=== PATIENT | male | born 1975 | race Caucasian/White ===

== ENCOUNTER 2017-04-27 06:20 | Day surgery (SDC) | payer BC ==
[~2017-04-27] VITALS: Ht 190.5 cm; Wt 117.3 kg
[~2017-04-27 06:20] MED LIST: VARE1TAB21 PO
[2017-04-27] MEDS ORDERED: CIPROFLOXACIN/PMX 400MG/200ML 200 ML IVPB ONE (07:00)
[2017-04-27 07:18] VITALS: BP 132/94
[2017-04-27] MEDS ORDERED: NALOXONE 1 MG/ML, 2ML ONE (08:03)
[2017-04-27] MEDS ORDERED: MIDAZOLAM 1 MG/ML, 5ML ONE ×2 (08:03)
[2017-04-27] MEDS ORDERED: FENTANYL PF 100 MCG/2ML ONE ×3 (08:03→09:40)
[2017-04-27] MEDS ORDERED: FLUMAZENIL 0.1 MG/1 ML, 5ML ONE (08:04)
[2017-04-27] MEDS ORDERED: LIDOCAINE 2%, 20ML ONE (08:12)
[2017-04-27] MEDS ORDERED: PROMETHAZINE 25 MG/ML, 1ML ONE (08:33)
[2017-04-27] MEDS ORDERED: MEPERIDINE/PF 50 MG/ML ONE (08:33)
[2017-04-27] MEDS ORDERED: VISIPAQUE 270 MG/ML, 50ML BOTTLE ONE (09:32)
[2017-04-27] MEDS ORDERED: PHENAZOPYRIDINE 200 MG TABLET ONE (10:53)
[2017-04-27] MEDS ORDERED: PHENAZOPYRIDINE 200 MG TABLET PO ONE (10:55)
== END 2017-04-27 11:15 ==
LOC: OUT 06:20
PROVIDERS: ATTEND Urology
DX: N20.0 Calculus of kidney (principal); Z79.82 Long term (current) use of aspirin; Z98.890 Other specified postprocedural states; Z98.52 Vasectomy status
CPT/HCPCS: 50433; 76937; 99156; 99157; C1751; C1769; C1894; C2625; J0744; J2175; J2250; J2550; J3010; J3490; Q9966; J2310

== ENCOUNTER 2017-04-30 12:47 | Inpatient (IN) | payer BC ==
[~2017-04-30] VITALS: Ht 190.5 cm; Wt 116.7 kg
[2017-04-30] MEDS ORDERED: LACTATED RINGERS 1,000 ML IV SCH (13:53)
[2017-04-30 13:54] VITALS: BP 145/85
[2017-04-30] MEDS ORDERED: PANT20TA3 PO (13:54)
[2017-04-30] MEDS ORDERED: FENTANYL PF 100 MCG/2ML ONE ×4 (15:38→20:06)
[2017-04-30] MEDS ORDERED: MIDAZOLAM 1 MG/ML, 2ML ONE (15:38)
[2017-04-30] MEDS ORDERED: ROCURONIUM 10 MG/ML ONE (16:06)
[2017-04-30] MEDS ORDERED: PROPOFOL 10 MG/ML, 20ML ONE (16:06)
[2017-04-30] MEDS ORDERED: CEFAZOLIN 1,000 MG ONE ×3 (16:07)
[2017-04-30] MEDS ORDERED: KETAMINE 10 MG/ML, 20ML ONE (16:23)
[2017-04-30] MEDS ORDERED: DEXAMETHASONE 4 MG/ML, 1ML ONE ×2 (16:30)
[2017-04-30] MEDS ORDERED: GENTAMICIN 80 MG/2 ML ONE ×2 (16:31)
[2017-04-30] MEDS ORDERED: HYDROmorphone 2 MG/ML, 1ML ONE (17:19)
[2017-04-30] MEDS ORDERED: OMNIPAQUE 350 MG/ML, 50 ML BOTTLE IV ONE (17:41)
[2017-04-30] MEDS ORDERED: ONDANSETRON 2MG/ML, 2ML ONE ×3 (18:57→22:10)
[2017-04-30] MEDS ORDERED: KETOROLAC 30 MG/1 ML ONE (18:57)
[2017-04-30] MEDS ORDERED: OXYcodone 5 MG/5 ML ORAL.SOL UDC PO PRN (19:00)
[2017-04-30] MEDS ORDERED: ACETAMINOPHEN 325 MG TABLET PO PRN (19:00)
[2017-04-30] MEDS ORDERED: LABETALOL 5MG/ML, 20ML IV PRN (19:00)
[2017-04-30] MEDS ORDERED: LORazepam 2 MG/ML, 1ML IVPush PRN (19:00)
[2017-04-30] MEDS ORDERED: ONDANSETRON 2MG/ML, 2ML IVPush PRN (19:00)
[2017-04-30] MEDS ORDERED: MEPERIDINE/PF 25MG/0.5ML IVPush PRN (19:00)
[2017-04-30] MEDS ORDERED: PROMETHAZINE 25 MG/ML, 1ML IV PRN (19:00)
[2017-04-30] MEDS ORDERED: hydrALAzine 20 MG/ML, 1ML IV PRN (19:00)
[2017-04-30] MEDS ORDERED: OMNIPAQUE 350 MG/ML, 50 ML BOTTLE ONE (20:00)
[2017-04-30] MEDS ORDERED: HYDROmorphone 1 MG/ML, 1ML ONE (20:02)
[2017-04-30] MEDS ORDERED: OXYcodone 5 MG/5 ML ORAL.SOL UDC ONE (20:02)
[2017-04-30] MEDS ORDERED: OPIUM/BELLADONNA SUPP.RECT 16.2-60 MG ONE (20:06)
[2017-04-30] MEDS: FENTANYL PF 100 MCG/2ML IV PRN ×2 (20:07→20:15)
[2017-04-30] MEDS: HYDROmorphone 1 MG/ML, 1ML IV PRN ×2 (20:10→21:22)
[2017-04-30 20:15] LABS: HEMATOCRIT 49.4 % (39.2-51.8); HEMOGLOBIN 16.5 g/dL (13.7-18.0)
[2017-04-30 20:26] LABS: BLOOD UREA NITROGEN 20 mg/dL (7-18)
[2017-04-30 20:27] LABS: ASPARTATE AMINO TRANSFERASE 17 U/L (15-37)
[2017-04-30] MEDS ORDERED: OPIUM/BELLADONNA SUPP.RECT 16.2-60 MG PR ONE (20:30)
[2017-04-30] MEDS: morphine SULFATE 10 MG/ML, 1ML IV PRN ×2 (22:23→23:22)
[2017-04-30] MEDS: LACTATED RINGERS 1,000 ML IV SCH (22:30)
[2017-04-30] MEDS ORDERED: ONDANSETRON 2MG/ML, 2ML IV PRN (22:30)
[2017-04-30] MEDS ORDERED: OPIUM/BELLADONNA SUPP.RECT 16.2-60 MG PR PRN (22:30)
[2017-04-30 23:51] VITALS: BP 121/88
[2017-05-01] MEDS: CEFAZOLIN PMX 1GM/50ML 50 ML IVPB SCH ×2 (00:48→08:59)
[2017-05-01 03:54] VITALS: BP 103/63
[2017-05-01 04:56] LABS: HEMATOCRIT 42.8 % (39.2-51.8); HEMOGLOBIN 14.4 g/dL (13.7-18.0); WHITE BLOOD COUNT 10.8 x10^3/uL (3.4-10)
[2017-05-01 05:03] LABS: BLOOD UREA NITROGEN 19 mg/dL (7-18)
[2017-05-01] MEDS: LACTATED RINGERS 1,000 ML IV SCH ×2 (06:30→14:54)
[2017-05-01] MEDS: OXYcodone/APAP 5/325MG TABLET PO PRN ×3 (07:19→16:04)
[2017-05-01 07:28] VITALS: BP 110/61
[2017-05-01] MEDS ORDERED: PANTOPRAZOLE 20MG TABLET PO SCH (07:30)
[2017-05-01] MEDS: VARENICLINE 1MG TABLET PO SCH ×2 (08:59→09:01)
[2017-05-01] MEDS: morphine SULFATE 10 MG/ML, 1ML IV PRN (09:05)
[2017-05-01 15:17] VITALS: BP 131/86
[2017-05-01] MEDS ORDERED: OXYC-302 PO (16:32)
[2017-05-01] MEDS ORDERED: CEFTIN PO (16:33)
== END 2017-05-01 16:45 | disposition home or self-care (01) | DRG 661 ==
LOC: OUT 12:47 → 4NOR 21:52 → OUT 22:43 → DCLOUNGE 05-01 16:36
PROVIDERS: ADMIT Urology; ATTEND Urology
PROC: 0T9430Z Drainage of Left Kidney Pelvis with Drainage Device, Percutaneous Approach (ICD-10-PCS; principal; 2017-05-01)
PROC: 0TC13ZZ Extirpation of Matter from Left Kidney, Percutaneous Approach (ICD-10-PCS; 2017-05-01)
DX: N20.0 Calculus of kidney (principal)
CPT/HCPCS: 36415; 50431; 74425; 80048; 80053; 82360; 85014; 85018; 85025; 88300; J0690; J1100; J1170; J1885; J2250; J2405; J2704; J3010; Q9967; C1727; C1769; C2625; J1580; J2270; J7120

== ENCOUNTER → 2017-05-04 | Outpatient (CLI) | payer BC ==
[~2017-05-04] MED LIST changes: +CEFTIN PO; +OXYC-302 PO; +PANT20TA3 PO; +VISIPAQUE 270 MG/ML, 50ML BOTTLE ONE
== END | disposition home or self-care (01) ==
LOC: RAD 13:15
PROVIDERS: ATTEND Urology
DX: N20.0 Calculus of kidney (principal); Z93.6 Other artificial openings of urinary tract status
CPT/HCPCS: 74425; Q9966